=== PATIENT | female | born 1975 | race Caucasian/White ===

== ENCOUNTER 2018-10-18 08:59 | Emergency (ER) | payer SELFPAY ==
[2018-10-18 09:27] VITALS: BMI 29.2
[2018-10-18] MEDS ORDERED: METHOCARBAMOL 500 MG TABLET PO ONE (09:46)
[2018-10-18] MEDS ORDERED: KETOROLAC TROMETHAMINE 30 MG/1 ML VIAL IM ONE (09:46)
--- NOTE | 2018-10-18 09:57 | PDOC ---
History of Present Illness - General Chief Complaint: Injury Stated Complaint: FALL/BACK PAIN Time Seen by Provider: 10/18/18 09:27 History Source: Patient Exam Limitations: Language Barrier - History of Present Illness Initial Comments: 10/18/18 09:54 43 y/o female was walking [facility] when she slipped and fell. Pt denies hitting her head,LOC, nausea or vomiting. Pt is c/o rt knee pain and some lower back pain. Pt has not walked since the fall. PT was bought in by EMS Pt denies neck pain, sob, chest pain. Incident occurred just prior to arrival in ED. PT c/o 6/10 pain in her knee. Pt denies smoking, alcohol or drug usage. LMP about 10 years ago. PSH- S/p hysterectomy due ti fibroids and gall bladder removal Timing/Duration: 1-3 hours Associated Symptoms: denies: chest pain, diaphoresis, shortness of breath Past History - Past Medical History Allergies/Adverse Reactions: Allergies Allergy/AdvReac Type Severity Reaction Status Date / Time No Known Allergies Allergy Verified 10/18/18 09:29 Home Medications: Ambulatory Orders Methocarbamol [Robaxin -] 500 mg PO TID PRN #21 tablet 10/18/18 Naproxen [Naprosyn -] 500 mg PO BID #28 tablet 10/18/18 COPD: No - Surgical History Cholecystectomy: Yes - Immunization History Immunization Up to Date: Yes - Suicide/Smoking/Psychosocial Hx Smoking Status: No Smoking History: Never smoked Have you smoked in the past 12 months: No Number of Cigarettes Smoked Daily: 0 Information on smoking cessation initiated: No Hx Alcohol Use: No Drug/Substance Use Hx: No Review of Systems - Review of Systems Constitutional: No: See HPI, Fever HEENTM: No: Blurred Vision, Double Vision Respiratory: No: Cough, Shortness of Breath, SOB at Rest Cardiac (ROS): No: Chest Pain, Palpitations ABD/GI: No: Nausea, Vomiting Musculoskeletal: Yes: Other (rt knee pain and lower back pain) Neurological: No: Headache, Dizziness *Physical Exam - Vital Signs Last Vital Signs Temp Pulse Resp BP Pulse Ox 97.9 F 78 16 119/58 L 98 10/18/18 09:15 10/18/18 09:15 10/18/18 09:15 10/18/18 09:15 10/18/18 09:15 - Physical Exam General Appearance: Yes: Nourished, Appropriately Dressed, Mild Distress HEENT: positive: EOMI, Normal Voice Neck: positive: Supple. negative: Tender midline Respiratory/Chest: positive: Lungs Clear, Normal Breath Sounds. negative: Respiratory Distress Cardiovascular: positive: Regular Rhythm, Regular Rate, S1, S2 Gastrointestinal/Abdominal: positive: Normal Bowel Sounds, Soft. negative: Guarding, Rebound, Tenderness Musculoskeletal: positive: Other (rt knee with some crepitus noted, small brusing to medial part of knee,low back pain) Neurologic: positive: Fully Oriented, Alert, Normal Response Moderate Sedation - Procedure Monitoring Vital Signs: Procedure Monitoring Vital Signs Temperature 97.9 F 10/18/18 09:15 Pulse Rate 78 10/18/18 09:15 Respiratory Rate 16 10/18/18 09:15 Blood Pressure 119/58 L 10/18/18 09:15 O2 Sat by Pulse Oximetry (%) 98 10/18/18 09:15 ED Treatment Course - RADIOLOGY Radiology Studies Ordered: Category Date Time Status CHEST PA & LAT [RAD] Stat Radiology 10/18/18 09:44 Ordered KNEE 2 POS-RIGHT [RAD] Stat Radiology 10/18/18 09:45 Ordered SPINE-LUMBAR SACRAL [RAD] Stat Radiology 10/18/18 09:45 Ordered Medical Decision Making - Medical Decision Making 10/18/18 10:03 43 y/o female slipped and fell on ice no head injury, pt c/o rt knee pain and low back pain just prior to arrival to ED, will obtain xray of rt knee, cxr and lower spine Will give dose of toradol and robaxin for 6/10 pain and reevaluate. PT s/p hysterectomy 10 years ago 10/18/18 14:02 Pt's xrays reviewed no acute fracture,pt is feeling better after the toradol will dc home with NSAID(naprosyn) and muscle relaxant(Robaxin). PT advised to take meds as directed,ice to knee and heating pad to lower back as needed.Pt to f/u with pcp in next 48-72 hrs. Pt agreed with this dc plan. Pt given opportunity to ask and have all questions answered prior to dc home. 10/18/18 14:06 *DC/Admit/Observation/Transfer Diagnosis at time of Disposition: Knee pain, acute, Back pain - Discharge Dispostion Disposition: HOME Condition at time of disposition: Stable Decision to Admit order: No - Prescriptions Prescriptions: Methocarbamol [Robaxin -] 500 mg PO TID PRN #21 tablet PRN Reason: muscle spasm Naproxen [Naprosyn -] 500 mg PO BID #28 tablet - Referrals Referrals: Jimmie Urias MD [Primary Care Provider] - - Patient Instructions Printed Discharge Instructions: DI for Acute Pain -- Adult, How to Prevent Falls, DI for Knee Pain Additional Instructions: Pt to f/u with PCP in next 48-72 hrs, return to ED for severe headache, trouble breathing or as needed. - Post Discharge Activity
[2018-10-18] MEDS ORDERED: METHOCARBAMOL 500 MG TABLET ONE (10:14)
[2018-10-18] MEDS ORDERED: KETOROLAC TROMETHAMINE 30 MG/1 ML VIAL ONE (10:14)
[2018-10-18 13:35] VITALS: BP 128/88; PULSE 84; TEMP 98.9
== END 2018-10-18 13:35 | disposition home or self-care (01) ==
LOC: JER 08:59
PROC: 3E0233Z Introduction of Anti-inflammatory into Muscle, Percutaneous Approach (ICD-10-PCS; principal; 2018-10-18)
DX: M25.561 Pain in right knee (principal); M54.5 Low back pain; W00.2XXA Other fall from one level to another due to ice and snow, initial encounter; Y93.01 Activity, walking, marching and hiking; Y92.480 Sidewalk as the place of occurrence of the external cause; Y99.8 Other external cause status
CPT/HCPCS: 71046-TC-FY; 72100-TC-FY; 73560-TC-RT-FY; 84703; 99283-25